=== PATIENT | female | born 1985 | race American Indian/Alaskan Native ===

== ENCOUNTER 2019-02-27 00:52 | Emergency (ER) | payer MEDICAID ==
[2019-02-27 01:26] LABS: Basophils % (Auto) 0.6 % (0.0-1.8); Eosinophils # (Auto) 0.2 K/mm3 (0.0-0.4); Eosinophils % (Auto) 2.4 % (0.0-4.3); Hematocrit 29.7 % (30.3-42.9); Hemoglobin 9.3 gm/dl (10.1-14.3); Lymphocytes # (Auto) 2.6 K/mm3 (1.2-5.4); Lymphocytes % (Auto) 40.8 % (13.4-35.0); Mean Corpuscular HGB Conc 31 % (30-34); Monocytes # (Auto) 0.7 K/mm3 (0.0-0.8); Monocytes % (Auto) 10.7 % (0.0-7.3); Platelet Count 328 K/mm3 (140-440); Red Blood Count 4.41 M/mm3 (3.65-5.03)
[2019-02-27 01:32] LABS: Mean Corpuscular Volume 67 fl (79-97); Red Cell Distribution Width 22.7 % (13.2-15.2)
[2019-02-27 01:35] LABS: Amphetamine Screen,Urine PRESUMPTIVE NEGATIVE; Benzodiazepines Screen,Urine PRESUMPTIVE NEGATIVE; Cocaine Screen,Urine PRESUMPTIVE NEGATIVE; Methadone Screen,Urine PRESUMPTIVE NEGATIVE; Opiate Screen,Urine PRESUMPTIVE NEGATIVE
[2019-02-27 01:58] LABS: Cannabinoid Screen,Urine PRESUMPTIVE POSITIVE
== END 2019-02-27 02:37 | disposition left against medical advice (07) ==
LOC: ED 00:52
DX: R42 Dizziness and giddiness (principal); Z53.21 Procedure and treatment not carried out due to patient leaving prior to being seen by health care provider
CPT/HCPCS: 36415; 80307; 85025